=== PATIENT | male | born 1935 | race Caucasian/White ===

== ENCOUNTER 2017-08-20 06:27 | Day surgery (SDC) | payer MEDICARE, OTHER ==
[~2017-08-20 06:27] MED LIST: Lactated Ringers 1,000 ML IV SCH; Lidocaine 1%/Sod Bicarbonate in NS 8.4% 1 ML Syringe PRN; Sodium Chloride 0.9% 10 ML Syringe FLUSH PRN
[2017-08-20] MEDS ORDERED: Lidocaine 1% 30 ML SDV ONE (06:39)
[2017-08-20] MEDS ORDERED: Bupivacaine 0.25% 30 ML SDV ONE (06:39)
[2017-08-20] MEDS ORDERED: Propofol 200 MG/20 ML SDV ONE ×2 (06:49→07:54)
[2017-08-20] MEDS ORDERED: fentaNYL 100 MCG/2 ML SDV ONE (06:49)
[2017-08-20] MEDS ORDERED: Lidocaine 1% 4 ML ONE (06:51)
--- NOTE | 2017-08-20 07:06 | PCM.PREANE ---
Preanesthetic Assessment - Anesthesia/Transfusion/Family Hx Anesthesia History: Prior Anesthesia Without Reaction Family History of Anesthesia Reaction: No Transfusion History: No Prior Transfusion(s) - Review of Systems General: No Symptoms Pulmonary: Other (CHACORTA but does not use cpap) Cardiovascular: No Symptoms, Other (CABG, CAD, AAA repair, IHD) Gastrointestinal: No Symptoms Neurological: No Symptoms Other: Reports: Easy Bleeding (plavix), Easy Bruising - Physical Assessment NPO Status Date: 08/19/17 NPO Status Time: 20:30 Pulse: 62 O2 Sat by Pulse Oximetry: 98 Respiratory Rate: 16 Blood Pressure: 133/56 Temperature: 36.3 C Height: 1.83 m Weight: 93.894 kg ASA Class: 3 Mental Status: Alert & Oriented x3 Airway Class: Mallampati = 3 Dentition: Reports: Dentures (upper ), Partial (bottom) Thyro-Mental Finger Breadths: 3 Mouth Opening Finger Breadths: 3 ROM/Head Extension: Full Lungs: Clear to Auscultation, Normal Respiratory Effort Cardiovascular: Regular Rate, Regular Rhythm - Lab Values: Laboratory Last Values MRSA (PCR) Negative 08/12/17 11:44 - Allergies Allergies/Adverse Reactions: Allergies Allergy/AdvReac Type Severity Reaction Status Date / Time No Known Allergies Allergy Verified 08/19/17 16:09 - Blood Blood Available: No Product(s) Available: None - Anesthesia Plan Pre-Op Medication Ordered: None - Acknowledgements Anesthesia Type Planned: MAC Pt an Appropriate Candidate for the Planned Anesthesia: Yes Alternatives and Risks of Anesthesia Discussed w Pt/Guardian: Yes Pt/Guardian Understands and Agrees with Anesthesia Plan: Yes PreAnesthesia Questionnaire HEENT History: Reports: Impaired Vision Other HEENT History: wears glasses, hearing aids, dentures, left ear impacted cerumen Cardiovascular History: Reports: Aneurysm, Angina, CAD, High Cholesterol, Stents , Other (See Below) Other Cardiovascular History: ischemic heart disease Respiratory History: Reports: Sleep Apnea Gastrointestinal History: Reports: Hemorrhoids Genitourinary History: Reports: None BELT SANDER STONE History: Reports: None Musculoskeletal History: Reports: Other (See Below) Other Musculoskeletal History: hip injury, joint pain, displacement of lumbar intervertebral disc without myelopathy Neurological History: Reports: None Psychiatric History: Reports: Other (See Below) Other Psychiatric History: hypersomnia Endocrine/Metabolic History: Reports: None Hematologic History: Reports: Anemia Immunologic History: Reports: None Oncologic (Cancer) History: Reports: None Dermatologic History: Reports: None - Past Surgical History Head Surgeries/Procedures: Reports: None Cardiovascular Surgical History: Reports: AAA Repair, Coronary Artery Bypass Respiratory Surgical History: Reports: None GI Surgical History: Reports: Colonoscopy, Hernia, Inguinal Female Surgical History: Reports: None Male Surgical History: Reports: None Endocrine Surgical History: Reports: None Neurological Surgical History: Reports: None Musculoskeletal Surgical History: Reports: None Oncologic Surgical History: Reports: None Dermatological Surgical History: Reports: None - SUBSTANCE USE Smoking Status *Q: Former Smoker Recreational Drug Use History: No - HOME MEDS Home Medications: Home Meds Aspirin [Low Dose Aspirin EC] 81 mg PO DAILY 02/01/14 [History] Bimatoprost [Lumigan 0.03% Ophth Soln] 1 drop EYEBOTH BEDTIME 02/01/14 [History] Clopidogrel [Plavix] 75 mg PO DAILY 02/01/14 [History] Furosemide [Lasix] 20 mg PO DAILY 02/01/14 [History] Losartan [Cozaar] 25 mg PO DAILY 02/01/14 [History] Metoprolol Succinate [Toprol XL] 50 mg PO DAILY 02/01/14 [History] atorvaSTATin [Lipitor] 40 mg PO BEDTIME 02/01/14 [History] Acetaminophen/HYDROcodone [[place] 325-5 MG] 1 - 2 tab PO Q6H PRN #10 tablet 08/19 [Rx] Bee Pollen 1 cap PO DAILY 08/19/17 [History] - CURRENT (IN HOUSE) MEDS Current Meds: Current Medications Lactated Ringer's (Ringers, Lactated) 1,000 mls @ 125 mls/hr IV ASDIRECTED JANELLE Stop: 08/20/17 23:00 Lidocaine/Sodium Bicarbonate (Buffered Lidocaine 1% In Ns 8.4%) 0.25 ml .XX ONETIME PRN PRN Reason: Prior to IV Start Stop: 08/20/17 18:00 Sodium Chloride (Saline Flush) 10 ml FLUSH ASDIRECTED PRN PRN Reason: Keep Vein Open Stop: 08/20/17 18:00 Discontinued Medications Bupivacaine HCl (Marcaine 0.25%) Confirm Administered Dose 30 ml .ROUTE .STK- MED ONE Stop: 08/20/17 06:40 Fentanyl (Sublimaze) Confirm Administered Dose 100 mcg .ROUTE .STK-MED ONE Stop: 08/20/17 06:50 Lidocaine HCl (Xylocaine-Mpf 1%) Confirm Administered Dose 4 mls @ as directed .ROUTE .STK-MED ONE Stop: 08/20/17 06:52 Lidocaine HCl (Xylocaine-Mpf 1%) Confirm Administered Dose 30 ml .ROUTE .STK- MED ONE Stop: 08/20/17 06:40 Propofol (Diprivan 20 Ml) Confirm Administered Dose 200 mg .ROUTE .STK-MED ONE Stop: 08/20/17 06:50
--- NOTE | 2017-08-20 08:02 | PCM48HPAN ---
Post Anesthesia Note - EVALUATION WITHIN 48HRS OF ANESTHETIC Vital Signs in Normal Range: Yes Patient Participated in Evaluation: Yes Respiratory Function Stable: Yes Airway Patent: Yes Cardiovascular Function Stable: Yes Hydration Status Stable: Yes Pain Control Satisfactory: Yes Nausea and Vomiting Control Satisfactory: Yes Mental Status Recovered: Yes
[2017-08-20 08:26] VITALS: BP 128/54
--- NOTE | 2017-08-25 07:02 | PCM.OPNOTE ---
- General Post-Op/Procedure Note Date of Surgery/Procedure: 08/20/17 Operative Procedure(s): right carpal tunnel release Pre Op Diagnosis: right median nerve compression neuropathy Post-Op Diagnosis: Same Anesthesia Technique: Local, MAC Primary Surgeon: Pedrito Valdivia Anesthesia Provider: Kevin Paula Human Resources Benefits Specialist: Destinee Villa EBL in mLs: 5 Complications: None Condition: Good
--- NOTE | 2017-08-25 08:06 | OR ---
DATE OF OPERATION: 08/20/2017 SURGEON: Pedrito Valdivia MD OPERATION PERFORMED: Right carpal tunnel release. PREOPERATIVE DIAGNOSIS: Right median nerve compression neuropathy. POSTOPERATIVE DIAGNOSIS: Right median nerve compression neuropathy. ANESTHESIA TECHNIQUE: Local MAC. ANESTHESIA PROVIDER: Kevin Paula. HOOKER UP: Destinee Villa PA-C. ESTIMATED BLOOD LOSS: Less 5 mL. COMPLICATIONS: None. CONDITION: Stable. DESCRIPTION OF PROCEDURE: The patient was identified in the preoperative holding area. Proper site was marked and identified by the surgeon. The patient was taken back to the operative theater where after adequate anesthesia, the patient's right upper extremity was sterilely prepped and draped in the usual sterile fashion. OR time-out was performed. The patient received 2 g IV Ancef. At this time 1% lidocaine without epinephrine and 0.25% Marcaine without epinephrine were used to anesthetize the palmar cutaneous branch of the median nerve, roughly 10 cm proximal to the proximal wrist crease and then the incisional site was also anesthetized with the same cocktail using Sanchez's cardinal line and the ulnar border of the fourth digit as reference. At this time, incision was made. The blunt dissection was taken down to the palmar cutaneous fascia. Palmar cutaneous fascia was then incised with a [place] blade. Transverse carpal ligament was identified. A small rent was made in the transverse carpal ligament. A [place] elevator was then placed under the transverse carpal ligament and Afogn[place] blade was used to release all the way distally. Once it was found to be adequately released distally, attention was turned proximally. Tenotomy scissor was then used for the superficial forearm fascia as well as release of the transverse carpal ligament proximally. At this time, there was found to be adequate resection of the transverse carpal ligament both proximally and distally with fraying of the nerve. At this time, adequate saline was irrigated through the wound. A 4-0 nylon simple suture was used for closure of the skin. The patient tolerated the procedure well and was sent to PACU in stable condition. Note: Assist was needed in this case secondary to extra hands for holding the patient and retraction throughout the case as well as closure. MMODAL /[id number] [facility] HOSPITALStephane
== END 2017-08-20 08:56 | disposition home or self-care (01) ==
LOC: JD.SDS 06:27
PROVIDERS: ATTEND Orthopaedic Surgery
DX: G56.01 Carpal tunnel syndrome, right upper limb (principal); E78.2 Mixed hyperlipidemia; G47.33 Obstructive sleep apnea (adult) (pediatric); I25.119 Atherosclerotic heart disease of native coronary artery with unspecified angina pectoris; Z95.1 Presence of aortocoronary bypass graft; Z98.890 Other specified postprocedural states; Z79.82 Long term (current) use of aspirin; Z79.899 Other long term (current) drug therapy; Z87.891 Personal history of nicotine dependence
CPT/HCPCS: 64721; 87641; J3010; J3490; J7120; 01810; J2704

== ENCOUNTER 2023-02-27 11:05 | Emergency (ER) | payer MEDICARE, OTHER ==
[2023-02-27 11:13] VITALS: BP 92/45; PULSE 65
[2023-02-27] MEDS ORDERED: Ondansetron 4 MG/2 ML SDV IVPUSH ONE (11:31)
[2023-02-27] MEDS ORDERED: HYDROmorphone 0.5 MG/0.5 ML Syringe IVPUSH ONE ×2 (11:31→15:40)
[2023-02-27 11:50] LABS: BASOPHILS ABSOLUTE AUTO 0.01 K/mm3 (0.01-0.08); BASOPHILS PERCENT AUTO 0.2 % (0.1-1.2); EOSINOPHILS ABSOLUTE AUTO 0.02 K/mm3 (0.04-0.54); EOSINOPHILS PERCENT AUTO 0.3 (0.8-7.0); HEMOGLOBIN 9.5 gm/dl (13.7-17.5); LYMPHOCYTES ABSOLUTE AUTO 2.25 K/mm3 (1.32-3.57); LYMPHOCYTES PERCENT AUTO 33.8 % (21.8-53.1); MEAN CORPUSCULAR HEMOGLOBIN 32.8 pg (25.7-32.2); MEAN CORPUSCULAR HGB CONC 32.8 g/dl (32.2-35.5); MONOCYTES ABSOLUTE AUTO 0.33 K/mm3 (0.30-0.82); NEUTROPHILS ABSOLUTE AUTO 4.04 K/mm3 (1.78-5.38); NEUTROPHILS PERCENT AUTO 60.7 % (34.0-67.9); PLATELET COUNT,PLT 324 K/mm3 (163-337); WHITE BLOOD CELL COUNT,WBC 6.65 K/mm3 (4.23-9.07)
[2023-02-27 12:08] LABS: A/G RATIO 0.9 (1-2); ALBUMIN 3.3 g/dl (3.4-5.0); BILIRUBIN TOTAL 0.8 mg/dL (0.2-1.0); CALCIUM 8.6 mg/dL (8.5-10.1); EST CRCL DRUG DOSING (CG) 56.48 mL/min; PROTEIN TOTAL,TP 6.9 g/dl (6.4-8.2)
[2023-02-27 12:09] LABS: INR 1.02; PROTHROMBIN TIME 10.9 SECONDS (9.7-12.0)
[2023-02-27 12:11] LABS: PTT,PARTIAL THROMBOPLSTIN TIME 27.1 SECONDS (21.7-31.4)
== END 2023-02-27 16:04 ==
LOC: JD.ED 11:05
DX: S72.091A Other fracture of head and neck of right femur, initial encounter for closed fracture (principal); I25.10 Atherosclerotic heart disease of native coronary artery without angina pectoris; E78.00 Pure hypercholesterolemia, unspecified; Z79.82 Long term (current) use of aspirin; Z79.02 Long term (current) use of antithrombotics/antiplatelets; Z79.899 Other long term (current) drug therapy; Z87.891 Personal history of nicotine dependence; W19.XXXA Unspecified fall, initial encounter; Y92.009 Unspecified place in unspecified non-institutional (private) residence as the place of occurrence of the external cause
CPT/HCPCS: 36415; 73502; 80053; 85025; 85610; 85730; 96374; 96375; 96376; 99283; J1170; J2405; 99284

== ENCOUNTER 2023-09-19 11:51 | Emergency (ER) | payer MEDICARE, OTHER ==
[2023-09-19 12:45] LABS: BASOPHILS PERCENT AUTO 0.3 % (0.0-1.0); EOSINOPHILS PERCENT AUTO 0.3 % (0.0-6.0); HEMATOCRIT 22.8 % (42.0-52.0); HEMOGLOBIN 7.6 gm/dl (14.0-18.0); IMMATURE GRAN ABSOLUTE AUTO 0.14 K/mm3 (0.00-0.05); IMMATURE GRAN PERCENT AUTO 1.5 % (0.0-0.4); LYMPHOCYTES PERCENT AUTO 20.9 % (24.0-44.0); MEAN CORPUSCULAR HEMOGLOBIN 33.3 pg (28.0-32.0); MEAN CORPUSCULAR HGB CONC 33.3 g/dl (32.0-36.0); MEAN PLATELET VOLUME 10.3 fl (9.4-12.4); MONOCYTES ABSOLUTE AUTO 0.5 K/mm3 (0.0-0.8); MONOCYTES PERCENT AUTO 5.6 % (0.0-8.0); NEUTROPHILS ABSOLUTE AUTO 6.9 K/mm3 (1.8-7.7); NEUTROPHILS PERCENT AUTO 71.4 % (41.0-71.0); NRBC ABSOLUTE 0.05 (0.00-0.02); NRBC PERCENT 0.5 % (0.0-0.2); PLATELET COUNT,PLT 372 K/mm3 (150-400); RED BLOOD CELL COUNT 2.28 M/mm3 (4.52-5.90); WHITE BLOOD CELL COUNT,WBC 9.65 K/mm3 (3.9-11.3)
[2023-09-19] MEDS ORDERED: Pantoprazole 40 MG Vial IVPUSH ONE (13:08)
[2023-09-19 13:16] LABS: A/G RATIO 0.9 (1-2); ALBUMIN 3.3 g/dl (3.4-5.0); ANION GAP 16.7 (5-15); BILIRUBIN TOTAL 0.8 mg/dL (0.2-1.0); BUN/CREATININE RATIO 28.2 (14-18); CREATININE 1.1 mg/dL (0.7-1.3); EST CRCL DRUG DOSING (CG) 51.93 mL/min; POTASSIUM,K 3.7 mEq/L (3.5-5.1); PROTEIN TOTAL,TP 7.1 g/dl (6.4-8.2)
[2023-09-19 13:22] LABS: MAGNESIUM 1.8 mg/dL (1.8-2.4)
[2023-09-19] MEDS ORDERED: Furosemide 40 MG/4 ML VIAL IVPUSH ONE (14:42)
[2023-09-19 15:50] LABS: APPEARANCE,URINE CLEAR (Clear); BILIRUBIN,URINE NEGATIVE (Negative); COLOR,URINE YELLOW (Yellow); GLUCOSE,URINE NEGATIVE (Negative); KETONES,URINE NEGATIVE (Negative); LEUKOCYTE ESTERASE,URINE NEGATIVE (Negative); NITRITE,URINE NEGATIVE (Negative); OCCULT BLOOD,URINE NEGATIVE (Negative); PH,URINE 5.5 (5.0-8.0); PROTEIN,URINE NEGATIVE (Negative); UROBILINOGEN,URINE 0.2 (0.2-1.0)
[2023-09-19] MEDS ORDERED: Sodium Chloride 0.9% 250 ML ONE (16:41)
[2023-09-19 18:44] VITALS: BP 90/53; PULSE 85
== END 2023-09-19 17:05 ==
LOC: JD.ED 11:51
DX: D64.9 Anemia, unspecified (principal); K92.2 Gastrointestinal hemorrhage, unspecified; I50.9 Heart failure, unspecified; R79.89 Other specified abnormal findings of blood chemistry; I25.10 Atherosclerotic heart disease of native coronary artery without angina pectoris; E78.00 Pure hypercholesterolemia, unspecified; Z95.5 Presence of coronary angioplasty implant and graft; Z79.82 Long term (current) use of aspirin; Z79.02 Long term (current) use of antithrombotics/antiplatelets; Z79.899 Other long term (current) drug therapy
CPT/HCPCS: 36415; 36430; 71046; 71046-26; 80053; 81003; 83735; 83880; 84484; 85025; 86850; 86900; 86901; 86922; 93005; 93010; 96374; 96375; 99285; 99285-25; C9113; J1940; P9016

== ENCOUNTER 2024-09-11 06:27 | Emergency (ER) | payer MEDICARE, OTHER ==
[2024-09-11 10:18] VITALS: BP 117/53; PULSE 70
== END 2024-09-11 09:55 | disposition home or self-care (01) ==
LOC: JD.ED 06:27
DX: M25.562 Pain in left knee (principal); I25.10 Atherosclerotic heart disease of native coronary artery without angina pectoris; E78.00 Pure hypercholesterolemia, unspecified; Z95.5 Presence of coronary angioplasty implant and graft; Z79.82 Long term (current) use of aspirin; Z79.899 Other long term (current) drug therapy
CPT/HCPCS: 72170; 72170-26; 73552-26-LT; 73552-LT; 73564-26-LT; 73564-LT; 99283

== ENCOUNTER 2025-02-08 15:49 | Emergency (ER) | payer MEDICARE, OTHER ==
[2025-02-08 16:36] LABS: BASOPHILS PERCENT AUTO 0.2 % (0.0-1.0); EOSINOPHILS PERCENT AUTO 0.3 % (0.0-6.0); HEMATOCRIT 30.5 % (42.0-52.0); HEMOGLOBIN 10.1 gm/dl (14.0-18.0); IMMATURE GRAN ABSOLUTE AUTO 0.03 K/mm3 (0.00-0.05); IMMATURE GRAN PERCENT AUTO 0.5 % (0.0-0.4); LYMPHOCYTES ABSOLUTE AUTO 2.4 K/mm3 (1.0-4.8); LYMPHOCYTES PERCENT AUTO 37.5 % (24.0-44.0); MEAN CORPUSCULAR HEMOGLOBIN 29.7 pg (28.0-32.0); MEAN CORPUSCULAR HGB CONC 33.1 g/dl (32.0-36.0); MEAN CORPUSCULAR VOLUME 89.7 fl (83.0-99.0); MONOCYTES ABSOLUTE AUTO 0.4 K/mm3 (0.0-0.8); MONOCYTES PERCENT AUTO 6.7 % (0.0-8.0); NEUTROPHILS ABSOLUTE AUTO 3.6 K/mm3 (1.8-7.7); NEUTROPHILS PERCENT AUTO 54.8 % (41.0-71.0); PLATELET COUNT,PLT 317 K/mm3 (150-400); WHITE BLOOD CELL COUNT,WBC 6.46 K/mm3 (3.9-11.3)
[2025-02-08 16:56] LABS: ALBUMIN 3.6 g/dl (3.4-5.0); ANION GAP 17.7 (5-15); BILIRUBIN TOTAL 0.6 mg/dL (0.2-1.0); BUN/CREATININE RATIO 17.5 (14-18); C-REACTIVE PROTEIN 0.1 mg/dL (<0.30); CREATININE 1.2 mg/dL (0.7-1.3); EST CRCL DRUG DOSING (CG) 46.7 mL/min; POTASSIUM,K 3.7 mEq/L (3.5-5.1); PROTEIN TOTAL,TP 7.3 g/dl (6.4-8.2)
[2025-02-08] MEDS: Iopamidol 612 MG/ML 100 ML Bottle IVPUSH ONE (18:17)
[2025-02-08] MEDS: Sodium Chloride 0.9% 10 ML Syringe FLUSH PRN (18:17)
[2025-02-08] MEDS: Sodium Chloride 0.9% 1,000 ML IV SCH (18:39)
[2025-02-08] MEDS: Magnesium Citrate Solution 296 ML Bottle PO ONE (19:53)
[2025-02-08 20:46] VITALS: BP 140/60; PULSE 69
== END 2025-02-08 20:45 | disposition home or self-care (01) ==
LOC: JD.ED 15:49
DX: K59.00 Constipation, unspecified (principal); I50.9 Heart failure, unspecified; E78.00 Pure hypercholesterolemia, unspecified; Z79.82 Long term (current) use of aspirin; Z79.899 Other long term (current) drug therapy; Z87.891 Personal history of nicotine dependence
CPT/HCPCS: 36415; 74018; 74177; 80053; 83605; 83690; 84484; 85025; 86140; 93005; 96360; 96361; 99284; A9270; J7030; Q9967; 93010

== ENCOUNTER 2025-08-24 10:23 | Emergency (ER) | payer MEDICARE, OTHER ==
[2025-08-24 12:53] VITALS: BP 113/75; PULSE 78
== END 2025-08-24 12:58 | disposition home or self-care (01) ==
LOC: JD.ED 10:23
DX: M25.512 Pain in left shoulder (principal); M25.552 Pain in left hip; I11.0 Hypertensive heart disease with heart failure; I50.9 Heart failure, unspecified; E78.00 Pure hypercholesterolemia, unspecified; I25.10 Atherosclerotic heart disease of native coronary artery without angina pectoris; Z79.899 Other long term (current) drug therapy; Z79.82 Long term (current) use of aspirin; W19.XXXA Unspecified fall, initial encounter
CPT/HCPCS: 73030; 73060; 73080; 73502; 73552; 99283; A9270